=== PATIENT | male | born 1960 | race Two or more races ===

== ENCOUNTER → 2017-10-22 | Outpatient (CLI) | payer OTHER ==
[2017-10-22 12:24] LABS: BASOPHILS # (AUTO) 0.07 x10^3/uL (0-0.1); BASOPHILS % (AUTO) 1 % (0-1); EOSINOPHILS # (AUTO) 0.32 x10^3/uL (0-0.4); EOSINOPHILS % (AUTO) 3 % (1-7); LYMPHOCYTES % (AUTO) 16 % (22-44); MD NO; MEAN CORPUSCULAR HEMOGLOBIN 29.5 pg (27.5-34.5); MEAN CORPUSCULAR HGB CONC 33.1 g/dL (33.2-36.2); MEAN CORPUSCULAR VOLUME 89.1 fL (81-97); MEAN PLATELET VOLUME 8.9 fL (7.4-10.4); MONOCYTES # (AUTO) 0.77 x10^3/uL (0.2-0.8); MONOCYTES % (AUTO) 8 % (2-9); NEUTROPHILS # (AUTO) 7.42 x10^3/uL (1.8-6.8); NEUTROPHILS % (AUTO) 73 % (42-75); PLATELET COUNT 261 x10^3/uL (130-400); RED BLOOD COUNT 5.03 x10^6/uL (4.38-5.82); RED CELL DISTRIBUTION WIDTH 14.3 % (9.4-14.8)
[2017-10-22 13:05] LABS: CHLORIDE 107 mmol/L (98-107)
[2017-10-22 13:13] LABS: ANION GAP 6 mmol/L (5-15); CALCIUM 8.3 mg/dL (8.5-10.1); CREATININE 1.16 mg/dL (0.7-1.3)
[2017-10-22 13:14] LABS: ALANINE AMINOTRANSFERASE 39 U/L (12-78); ALBUMIN 3.7 g/dL (3.4-5.0); ALKALINE PHOSPHATASE 87 U/L (45-117); BILIRUBIN,TOTAL 0.6 mg/dL (0.2-1.0); CHOL/HDL RATIO 3.1; CHOLESTEROL, TOTAL 174 mg/dL (140-239); HDL CHOL % 32 % (26-37); HDL CHOLESTEROL (DIRECT) 56 mg/dL (40-60); LDL CHOLESTEROL,CALCULATED 101 mg/dL (54-169); LDL/HDL RATIO 1.8 (0.5-3.0); TOTAL PROTEIN 7.9 g/dL (6.4-8.2); TRIGLYCERIDES 84 mg/dL (50-200); VLDL CHOLESTEROL 17 mg/dL (0-25)
== END | disposition home or self-care (01) ==
LOC: CFH 07:46
PROVIDERS: ATTEND Nurse Practitioner Primary Care
DX: R05 Cough (principal); K21.9 Gastro-esophageal reflux disease without esophagitis; J98.6 Disorders of diaphragm; M72.2 Plantar fascial fibromatosis; R03.0 Elevated blood-pressure reading, without diagnosis of hypertension; R22.9 Localized swelling, mass and lump, unspecified; R53.83 Other fatigue; J30.9 Allergic rhinitis, unspecified; E78.2 Mixed hyperlipidemia
CPT/HCPCS: 36415; 71046; 80053; 80061; 85025